=== PATIENT | female | born 1980 | race Caucasian/White ===

== ENCOUNTER 2018-04-22 19:53 | Emergency (ER) | payer OTHER ==
[~2018-04-22] VITALS: Ht 162.6 cm; Wt 82.1 kg
[~2018-04-22 19:53] MED LIST: ACET325 PO; ACET500; ACET500 PO; ALBU8HFA2 INH; ALBU90OI INH; ALBU90OI6 INH; ALBU90OI61 INH; ALPR.5 PO; AMOCLA875 PO; AMOX500 PO; AMOX875 PO; AZIT250 PO; Amoxicillin500 MG PO; Augmentin 875-1 EACH PO; BENZ100A PO; Bentyl20 MG PO; CEPH500 PO; CODACE30 PO; CODACEE120 PO; CYCL10 PO; Cheratussin AC118 ML PO; Cyclobenzaprine5 MG PO; DIAZ5 PO; DIPH25 PO; DIPH50 PO; DOXY100 PO; Doxycycline Hy100 MG PO; ERYT.5TO OS; FLUC150A PO; FLUO20 PO; FLUT.05NI; Flomax0.4 MG PO; Flonase 0.05% N16 GM; HYDACE5 PO; HYDGUAL120 PO; IBUP600 PO; IBUP800 PO; LEVFLO500 PO; LORA.5 PO; METPRE4DP PO; MOMENI; MULVITMINE PO; Mucinex1200 MG PO; Mucinex600 MG PO; NAPR500 PO; NAPR550 PO; Nasonex17 GM; Norco 10-325 T1 EACH PO; Norco 5-325 Ta1 EACH PO; OMEP20ER PO; OMEP40CA12 PO; ONDA4 PO; OXYACE5T PO; OXYC5 PO; POTCHL20ER PO; PROCODE120 PO; PROM25 PO; PROM25S PR; PSEU120ER PO; PSEU30 PO; Percocet 5-3251 EACH PO; Percocet 7.5-31 EACH PO; Prednisone20 MG PO; RANI150; RANI150 PO; RXALBOI INH; RXERYTOPTH OP; RXHYDACE PO; RXNAPNA550 PO; RXOXYACE PO; RXPROM25 PO; Sudogest30 MG PO; TOBDEXOPSU OP; TRAM50 PO; Ultram50 MG PO; VENL75; Veetids 500500 MG PO; Zithromax250 MG PO; Zofran Odt4 MG SL; Zofran Odt8 MG SL; Zofran4 MG PO; [UNRECOGNIZED DRUG - REMARK]
[2018-04-22 20:53] LABS: BASOPHILS ABSOLUTE AUTO 0.04 K/mm3 (0.00-0.23); BASOPHILS PERCENT AUTO 1 % (0-2); EOSINOPHILS PERCENT AUTO 2 % (0-6); Hematocrit 37.1 % (33.0-51.0); Hemoglobin 12.4 g/dL (11.5-16.0); IMMATURE GRAN ABSOLUTE AUTO 0.01 K/mm3 (0.00-0.10); IMMATURE GRAN PERCENT AUTO 0 % (0-1); LYMPHOCYTES ABSOLUTE AUTO 3.28 K/mm3 (0.84-5.20); LYMPHOCYTES PERCENT AUTO 38 % (21-46); MONOCYTES ABSOLUTE AUTO 0.78 K/mm3 (0.16-1.47); MONOCYTES PERCENT AUTO 9 % (4-13); Mean Corpuscular HGB 27.4 pg (26.0-34.0); Mean Corpuscular HGB Conc 33.4 g/dL (31.5-36.5); Mean Corpuscular Volume 82 fL (80-100); Mean Platelet Volume 10.5 fL (9.1-12.4); NEUTROPHILS ABSOLUTE AUTO 4.44 K/mm3 (1.96-9.15); NEUTROPHILS PERCENT AUTO 51 % (41-73); Platelet Count 281 K/mm3 (150-400); RDW Coefficient Variation 13.3 % (11.7-14.2); RDW Standard Deviation 39.9 fL (35.1-46.3); Red Blood Cell Count 4.53 M/mm3 (3.80-5.20); White Blood Cell Count 8.75 K/mm3 (4.00-11.30)
[2018-04-22 21:18] LABS: Alanine Aminotransfer (ALT/SGP 19 U/L (12-78); Albumin, Blood 4.1 g/dL (3.4-5.0); Albumin/Globulin Ratio 1.1 (0.8-1.8); Alk Phos 66 U/L (50-136); Anion Gap 8 mmol/L (6-16); Aspartate Aminotrans (AST/SGOT 13 U/L (12-37); Bilirubin, Total 0.2 mg/dL (0.1-1.0); Blood Urea Nitrogen 10 mg/dL (8-24); Bun/Creatinine Ratio 13.9 (12.0-20.0); CO2, Blood 25 mmol/L (21-32); Calcium, Blood 8.6 mg/dL (8.5-10.1); Chloride, Blood 105 mmol/L (98-108); Creatinine, Blood 0.72 mg/dL (0.40-1.00); Globulin, Blood 3.9 g/dL (2.2-4.0); Glomerular Filtration Rate >60 (60-); Glucose, Blood 90 mg/dL (70-99); Potassium, Blood 3.6 mmol/L (3.5-5.5); Sodium, Blood 138 mmol/L (136-145)
[2018-04-22 21:56] LABS: Source, Urine Clean Catch
[2018-04-22 21:59] LABS: Bilirubin, Urine Neg (Neg); Blood, Urine 1+ (Neg); Glucose Qualitative, Urine Neg (Neg); Ketones, Urine 1+ (Neg); Leukocyte Esterase, Urine Neg (Neg); Nitrite, Urine Neg (Neg); Protein, Urine 1+ (Neg); Specific Gravity, Urine 1.025 (1.003-1.022); Urobilinogen, Urine NORM (Normal)
[2018-04-22 22:11] LABS: Appearance, Urine Clear (Clear); Color, Urine Yellow (P-Yellow); Red Blood Cells, Urine 0-2 /hpf (0-2); Squamous Epithelial Cells Few /hpf (Few)
[2018-04-22 22:12] LABS: Bacteria Many /hpf; Mucus Mod (0-Heavy)
[2018-04-23] MEDS ORDERED: Cipro500 MG PO (01:43)
== END 2018-04-23 02:00 | disposition home or self-care (01) ==
LOC: ER 19:53
PROVIDERS: Emergency Medicine
DX: N39.0 Urinary tract infection, site not specified (principal); Z88.0 Allergy status to penicillin; Z88.2 Allergy status to sulfonamides; Z91.040 Latex allergy status; Z88.6 Allergy status to analgesic agent; Z79.899 Other long term (current) drug therapy; J45.909 Unspecified asthma, uncomplicated; G43.909 Migraine, unspecified, not intractable, without status migrainosus; Z87.891 Personal history of nicotine dependence
CPT/HCPCS: 36415; 74177; 80053; 81001; 81025; 83690; 85025; 87086; 96361; 96374; 96375; 96376; 99284-25; J1885; J2405; J3010; J7030; Q9967